=== PATIENT | male | born 1955 | race Caucasian/White ===

== ENCOUNTER 2019-09-21 20:58 | Emergency (ER) | payer MEDICAID ==
[~2019-09-21] VITALS: Ht 182.9 cm; Wt 68.0 kg
[2019-09-21 21:00] VITALS: BP 126/82
--- NOTE | 2019-09-21 21:42 | NUR ---
REPORT CALLED TO DHAVAL AT [facility] TO INFORM THAT PATIENT WOULD BE RETURNING TO FACILITY. ALL QUESTIONS ANSWERED.
--- NOTE | 2019-09-21 21:42 | NUR ---
Patient discharged with v/s stable. Written and verbal after care instructions given and explained. Patient verbalized understanding. Ambulance Transport with to [facility]. All questions addressed prior to discharge. Advised to follow up with PMD.
[2019-09-21 21:49] VITALS: BP 126/82
== END 2019-09-21 21:50 | disposition psychiatric hospital, planned readmission (93) ==
LOC: MED 20:58
DX: R50.9 Fever, unspecified (principal)
CPT/HCPCS: 99283